=== PATIENT | male | born 1955 | race African-American/Black ===

== ENCOUNTER 2018-07-21 11:33 | Outpatient (CLI) | payer OTHER ==
--- NOTE | 2018-07-21 11:47 | RAD ---
RIGHT SHOULDER TWO VIEWS: History: Disability evaluation, right shoulder pain. FINDINGS: There are mild degenerative changes in the glenohumeral joint. No fracture, dislocation, or bony dest ruction is seen. IMPRESSION: Right shoulder osteoarthritis. POS: [id number]
== END 2018-07-21 11:34 | disposition home or self-care (01) ==
LOC: NAV RAD 11:33
PROVIDERS: ATTEND Family Medicine
DX: Z02.71 Encounter for disability determination (principal); M19.011 Primary osteoarthritis, right shoulder